=== PATIENT | female | born 1950 | race Asian ===

== ENCOUNTER 2021-02-16 10:37 | Day surgery (SDC) | payer MEDICARE, OTHER ==
[~2021-02-16] VITALS: Ht 160 cm; Wt 46.9 kg
--- NOTE | 2021-02-16 11:05 | NUR ---
70 year old patient admitted to [facility] via ambulation. is present. Medications and HX reviewed. Procedure verified and consent signed. Patient verbalized understanding of the procedure. Vitals obatined. Physical assessment completed. Patient changed into a clean gown and then used the bathroom. Non-slip socks are on and patient is wearing her shoes. IV started in R forearm on first attempt wit 22G. IVF scanned and are infusing without difficulty. First and last name + verified with the patient. Call pérez is at bedside.
[2021-02-16] MEDS ORDERED: VITAMIN D31000 I1 PO (11:10)
[2021-02-16] MEDS ORDERED: OMEGA-3 1000 MG1 CAP PO (11:10)
[2021-02-16] MEDS ORDERED: EYE VITAMIN PO (11:11)
[2021-02-16 11:18] VITALS: BP 122/76; PULSE 61; TEMP 98.8
[2021-02-16 12:55] VITALS: BP 109/71; PULSE 55; TEMP 97.1
--- NOTE | 2021-02-16 12:55 | NUR ---
PATIENT TRANSPORTED PER CART FROM ENDO SUITE TO BAY 1 ACCOMPANIED BY ENDO RN. PATIENT VERY DROWSY AND UNSTEADY ON FEE. CHAIR MOVED UP BY CART AND PATIENT PIVOTS TO CHAIR WITH 2 ASSIST. MONITORS APPLIED. VSS ON ROOM AIR. PATIENT IN ROOM. PATIENT DENIES C/O'S. WARM BLANKETS PROVIDED. VERBAL REPORT GIVEN.
[2021-02-16 13:00] VITALS: BP 122/73; PULSE 47
--- NOTE | 2021-02-16 13:05 | NUR ---
VSS ON ROOM AIR. PATIENT WAKING UP MORE. DENIES C/O'S. SIPING WATER.
[2021-02-16 13:15] VITALS: BP 140/76; PULSE 45
--- NOTE | 2021-02-16 13:18 | NUR ---
VSS ON ROOM AIR. PATIENT EATS JELLO. DR DOW IN ROOM AND SPEAKS WITH PATIENT AND .
[2021-02-16 13:30] VITALS: BP 155/83; PULSE 45
--- NOTE | 2021-02-16 13:35 | NUR ---
VSS ON ROOM AIR. PATIENT ALERT AND TALKING EATS JELLO AND DRINKS WATER WITHOUT PROBLEMS. DR DOW TALKS WITH PATIENT AND . PATIENT DENIES DISCOMFORT. 1335 IV DC'D WITH CATHETER TIP INTACT. PRESSURE AND BANDAGE APPLIED. 1340 DISCHARGE INSTRUCTIONS GIVEN VERBAL AND DISCHARGE PACKET PROVIDED. QUESTIONS ANSWERED AND PATIENT AND VOICED UNDERSTANDING. OFFICE NUMBER PROVIDED. PATIENT CHANGES INTO STREET CLOTHES. 1345 PATIENT DISCHARGED PER WHEEL CHAIR ACCOMPANIED BY ENDO STAFF TO PRIVATE VECHILE DRIVEN BY .
== END 2021-02-16 11:34 | disposition home or self-care (01) ==
LOC: SDCO 10:37
DX: Z12.11 Encounter for screening for malignant neoplasm of colon (principal); K21.00 Gastro-esophageal reflux disease with esophagitis, without bleeding; K22.5 Diverticulum of esophagus, acquired; Z86.010 Personal history of colon polyps
CPT/HCPCS: 43239; G0105; J2704; J7030